=== PATIENT | female | born 1930 | race Two or more races ===

== ENCOUNTER 2018-07-13 14:24 | Inpatient (IN) | payer MEDICARE, OTHER ==
[~2018-07-13] VITALS: Ht 152.4 cm; Wt 59.0 kg
[2018-07-13] MEDS ORDERED: ESCI10TA PO (14:35)
[2018-07-13] MEDS ORDERED: VALS160T29 PO (14:35)
[2018-07-13] MEDS ORDERED: DONE5TAB7 PO (14:35)
[2018-07-13] MEDS ORDERED: MEMA10TA PO (14:35)
[2018-07-13] MEDS ORDERED: AMLO10TA6 PO (14:35)
[2018-07-13] MEDS ORDERED: ATOR10TA33 PO (14:35)
[2018-07-13 14:59] LABS: BASOPHILS # (AUTO) 0.1 K/uL (0.0-8.0); BASOPHILS % (AUTO) 1.3 % (0.0-2.0); EOSINOPHILS # (AUTO) 0.3 K/uL (0.0-0.7); EOSINOPHILS % (AUTO) 4.7 % (0.0-7.0); HEMOGLOBIN 10.4 g/dL (10.9-14.3); LYMPHOCYTES # (AUTO) 2.3 K/uL (20.0-40.0); LYMPHOCYTES % (AUTO) 35.3 % (20.5-51.5); MEAN CORPUSCULAR HEMOGLOBIN 29.8 uug (24.7-32.8); MEAN CORPUSCULAR HGB CONC 34 g/dL (32.3-35.6); MEAN CORPUSCULAR VOLUME 88.8 fL (75.5-95.3); MONOCYTES # (AUTO) 0.7 K/uL (2.0-10.0); MONOCYTES % (AUTO) 9.9 % (0.0-11.0); NEUTROPHILS # (AUTO) 3.2 K/uL (1.8-8.9); NEUTROPHILS % (AUTO) 48.8 % (38.5-71.5); PLATELET COUNT (AUTO) 213 K/uL (179-408); RED BLOOD CELL COUNT(AUTO) 3.49 MIL/uL (3.63-4.92); WHITE BLOOD COUNT (AUTO) 6.7 K/uL (3.8-11.8)
[2018-07-13 15:05] LABS: CARBON DIOXIDE 25 mmol/L (21-32); CHLORIDE 108 mmol/L (98-107); CREATININE 1.5 mg/dL (0.6-1.3); GLUCOSE 98 mg/dL (74-106); POTASSIUM 3.7 mmol/L (3.5-5.1); UREA NITROGEN, BLOOD 38 mg/dL (7-18)
[2018-07-13 15:11] LABS: ALANINE AMINOTRANSFERASE 21 U/L (14-59); ALKALINE PHOSPHATASE 105 U/L (50-136); ASPARTATE AMINOTRANSFERASE 14 U/L (15-37); BILIRUBIN,DIRECT 0.1 mg/dL (0.0-0.2); BILIRUBIN,TOTAL 0.3 mg/dL (0.2-1.0); TOTAL PROTEIN, SERUM 6.6 g/dL (6.4-8.2)
[2018-07-13 15:12] LABS: ACETAMINOPHEN < 2.0 ug/mL (10-30)
[2018-07-13 15:13] LABS: ETHANOL < 3 MG/DL (0-0)
--- NOTE | 2018-07-13 15:30 | NUR ---
Per pt is medically clear and may be transfered to MHU. SBAR report given to Julius HERNDON.
[2018-07-13 15:46] LABS: *BILIRUBIN,URIN NEGATIVE (NEGATIVE); *BLOOD, URINE NEGATIVE (NEGATIVE); *CLARITY,URINE CLEAR (CLEAR); *COLOR,URINE YELLOW (YELLOW); *KETONES,URINE NEGATIVE (NEGATIVE); *PROTEIN,URINE NEGATIVE (NEGATIVE); *UROBILINOGEN,URINE 0.2 E.U./dl (NORMAL); LEUKOCYTE ESTERASE ,URINE NEGATIVE (NEGATIVE); NITRITE, URINE NEGATIVE (NEGATIVE); UGLUCOSE NEGATIVE (NEGATIVE)
[2018-07-13 15:53] LABS: MUCUS,URINE FEW /LPF (0-FEW); SQUAMOUS EPITHELIAL CELL,UR FEW /HPF (NONE SEEN); WBC,URINE 0-3 /HPF (0-3)
--- NOTE | 2018-07-13 15:54 | NUR ---
Pt trans to MHU, NAD noted.
[2018-07-13 16:00] LABS: *AMPHETAMINE, URINE NEGATIVE (NEGATIVE); *BARBITURATE, URINE NEGATIVE (NEGATIVE); *CANNABINOID, URINE NEGATIVE (NEGATIVE); *COCCAINE, URINE NEGATIVE (NEGATIVE); *OPIATE, URINE NEGATIVE (NEGATIVE); *PHENCYCLIDINE SCREEN,URINE NEGATIVE (NEGATIVE)
[2018-07-13] MEDS ORDERED: LORAZEPAM 0.5 MG TABLET PO PRN (16:15)
[2018-07-13] MEDS ORDERED: ACETAMINOPHEN 325 MG TABLET PO PRN (16:15)
[2018-07-13] MEDS ORDERED: MAGNESIUM HYDROXIDE 30 ML LIQUID UDC PO PRN (16:15)
[2018-07-13] MEDS ORDERED: MAG HYDROX/AL HYDROX/SIMETH 30 ML LIQUID UDC PO PRN (16:15)
[2018-07-13] MEDS ORDERED: TEMAZEPAM 7.5 MG CAPSULE PO PRN (16:15)
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
[2018-07-13] MEDS ORDERED: LORAZEPAM 1 MG TABLET PO PRN (16:45)
[2018-07-13] MEDS ORDERED: CLONIDINE HCL 0.1 MG TABLET PO PRN (17:45)
[2018-07-13 20:02] VITALS: BP 147/48
[2018-07-13] MEDS: ATORVASTATIN 10 MG TABLET PO SCH (20:21)
--- NOTE | 2018-07-14 05:38 | NUR ---
GPS: REMAIN CALM AND COOPERATIVE WITH MEDICATIONS AND CARE. AMBULATORY SELF CARE. NO BEHAVIOR ISSUE NOTED. CONTINUE MONITORING FOR SAFETY AND UNSTEADY GAIT.CONTINUE PLAN OF CARE.
--- NOTE | 2018-07-14 05:55 | NUR ---
GPS: SLEPT 10:30 HRS THROUGH THE NIGHT.
[2018-07-14 07:05] LABS: BASOPHILS # (AUTO) 0.1 K/uL (0.0-8.0); BASOPHILS % (AUTO) 1.1 % (0.0-2.0); EOSINOPHILS # (AUTO) 0.4 K/uL (0.0-0.7); EOSINOPHILS % (AUTO) 6.7 % (0.0-7.0); HEMATOCRIT 31.6 % (31.2-41.9); HEMOGLOBIN 10.5 g/dL (10.9-14.3); LYMPHOCYTES # (AUTO) 2.2 K/uL (20.0-40.0); LYMPHOCYTES % (AUTO) 35.4 % (20.5-51.5); MEAN CORPUSCULAR HEMOGLOBIN 29.6 uug (24.7-32.8); MEAN CORPUSCULAR HGB CONC 33 g/dL (32.3-35.6); MONOCYTES # (AUTO) 0.6 K/uL (2.0-10.0); MONOCYTES % (AUTO) 9.6 % (0.0-11.0); NEUTROPHILS # (AUTO) 2.9 K/uL (1.8-8.9); NEUTROPHILS % (AUTO) 47.2 % (38.5-71.5); PLATELET COUNT (AUTO) 208 K/uL (179-408); RED BLOOD CELL COUNT(AUTO) 3.55 MIL/uL (3.63-4.92); WHITE BLOOD COUNT (AUTO) 6.1 K/uL (3.8-11.8)
[2018-07-14 07:49] LABS: ALANINE AMINOTRANSFERASE 20 U/L (14-59); ALKALINE PHOSPHATASE 94 U/L (50-136); ASPARTATE AMINOTRANSFERASE 19 U/L (15-37); BILIRUBIN,TOTAL 0.6 mg/dL (0.2-1.0); CARBON DIOXIDE 25 mmol/L (21-32); CHLORIDE 105 mmol/L (98-107); CREATININE 1.3 mg/dL (0.6-1.3); GLUCOSE 85 mg/dL (74-106); MAGNESIUM 2.1 mg/dL (1.8-2.4); PHOSPHOROUS 3.8 mg/dL (2.5-4.9); POTASSIUM 3.8 mmol/L (3.5-5.1); TOTAL PROTEIN, SERUM 6.2 g/dL (6.4-8.2); UREA NITROGEN, BLOOD 30 mg/dL (7-18)
[2018-07-14 07:51] VITALS: BP 160/44
[2018-07-14] MEDS: AMLODIPINE 10 MG TABLET PO SCH (08:25)
[2018-07-14] MEDS: ASPIRIN EC 81 MG TABLET.DR PO SCH (08:26)
[2018-07-14 10:01] LABS: IRON, SERUM 65 ug/dL (50-175)
[2018-07-14 15:36] VITALS: BP 138/45
--- NOTE | 2018-07-14 15:40 | NUR ---
PT DAUGHTER OPAL CALLED TO RECEIVE INFORMATION ABOUT HER MOTHER. I SPOKE TO THE PT AND SHE VERBALIZES THAT SHE DOES NOT WANT ANY INFORMATION DIVULGED TO ANY OF HER DAUGHTERS OR ANYONE. OPAL STATES THAT SHE IS THE DPOA. NO DPOA DOCUMENTATION WAS PROVIDED. I ATTEMPTED TO CALL [facility] TO OBTAIN A COPY OF THE DPOA DOCUMENT. UNABLE TO OBTAIN DPOA DOCUMENTATION AT THIS TIME. NO INFORMATION PROVIDED TO OPAL.
[2018-07-14] MEDS ORDERED: GUAIFENESIN/DEXTROMETHORPHAN 5 ML UDC PO PRN (17:00)
[2018-07-14] MEDS: ATORVASTATIN 10 MG TABLET PO SCH (20:09)
[2018-07-14] MEDS: QUETIAPINE FUMARATE 25 MG TABLET PO SCH (20:09)
[2018-07-14 20:10] VITALS: BP 150/49
[2018-07-15 07:30] VITALS: BP 159/54
[2018-07-15] MEDS: ASPIRIN EC 81 MG TABLET.DR PO SCH (08:09)
[2018-07-15] MEDS: QUETIAPINE FUMARATE 25 MG TABLET PO SCH ×2 (08:09→20:16)
[2018-07-15] MEDS: DONEPEZIL 5 MG TABLET PO SCH (08:09)
[2018-07-15] MEDS: AMLODIPINE 10 MG TABLET PO SCH (08:10)
[2018-07-15] MEDS: MEMANTINE HCL 10 MG TABLET PO SCH (08:11)
[2018-07-15] MEDS: ESCITALOPRAM OXALATE 10 MG TABLET PO SCH (09:00)
[2018-07-15 15:59] VITALS: BP 128/49
[2018-07-15 20:00] VITALS: BP 148/52
[2018-07-15] MEDS: ATORVASTATIN 10 MG TABLET PO SCH (20:16)
--- NOTE | 2018-07-16 06:05 | NUR ---
GPS: REMAIN CALM AND COOPERATIVE WITH MEDICATIONS AND CARE. SLEPT 6:30 HRS THROUGH THE NIGHT. RESTING IN BED COMFORTABLY. NO ACUTE DISTRESS NOTED.
[2018-07-16 07:30] VITALS: BP 158/69
[2018-07-16] MEDS: ASPIRIN EC 81 MG TABLET.DR PO SCH (09:09)
[2018-07-16] MEDS: MEMANTINE HCL 10 MG TABLET PO SCH (09:10)
[2018-07-16] MEDS: AMLODIPINE 10 MG TABLET PO SCH (09:10)
[2018-07-16] MEDS: ESCITALOPRAM OXALATE 10 MG TABLET PO SCH (09:10)
[2018-07-16] MEDS: DONEPEZIL 5 MG TABLET PO SCH (09:10)
[2018-07-16] MEDS: QUETIAPINE FUMARATE 25 MG TABLET PO SCH ×3 (09:10→20:05)
--- NOTE | 2018-07-16 14:29 | NUR ---
Initial Discharge Instructions: Patient currently resides with her daughter, Elsi [[address], [address] [place] [address]; [phone]]. Per pt, she does not want to return home with her, but instead would like a "quiet house for me to live in without people around." SW left message for return call with her daughter/DPOA, Elsi rCoft ([phone]). BRANDIE will continue to collaborate with pt, family, and MD regarding most appropriate discharge plans for this patient. SW will form a safe and proper discharge.
--- NOTE | 2018-07-16 14:30 | NUR ---
DPOA Note: Received fax from patient's daughter, Elsi Croft ([phone]) with DPOA paperwork. Paperwork placed in patient's chart. Pt's daughter to be involved in care.
[2018-07-16 16:51] VITALS: BP 125/50
[2018-07-16] MEDS: ATORVASTATIN 10 MG TABLET PO SCH (20:05)
[2018-07-16 20:44] VITALS: BP 132/77
--- NOTE | 2018-07-17 05:59 | NUR ---
GPS: REMAIN CALM AND COOPERATIVE WITH MEDICATIONS AND CARE. AMBULATORY SELF CARE. SLEPT 7.5 HRS THROUGH THE NIGHT. CONTINUE MONITORING FOR SAFETY AND UNSTEADY GAIT.CONTINUE PLAN OF CARE.
[2018-07-17 07:30] VITALS: BP 155/58
[2018-07-17] MEDS: QUETIAPINE FUMARATE 25 MG TABLET PO SCH ×3 (09:21→20:26)
[2018-07-17] MEDS: AMLODIPINE 10 MG TABLET PO SCH (09:22)
[2018-07-17] MEDS: ESCITALOPRAM OXALATE 10 MG TABLET PO SCH (09:22)
[2018-07-17] MEDS: ASPIRIN EC 81 MG TABLET.DR PO SCH (09:22)
[2018-07-17] MEDS: MEMANTINE HCL 10 MG TABLET PO SCH (09:22)
[2018-07-17] MEDS: DONEPEZIL 5 MG TABLET PO SCH (09:22)
--- NOTE | 2018-07-17 14:25 | NUR ---
Discharge Planning: concrete worker called and spoke with patient's daughter and DPOA, Elsi [[phone]], about patient's discharge plan. Per Elsi, she would like patient to return home. However, Elsi states that she will need support. Patient has had home health in the past with [facility] . Per Elsi, she has tried to have the company come back again but patient has sent them away. Elsi would like to use the same HH company. Elsi is also requesting that Dr. Somers write a letter for the conservator process she has started that states the patient is lacking competency. concrete worker will follow-up with Dr. Somers on this matter. Lastly, Elsi was offered and is accepting resources for caregivers. concrete worker will refer patient to caregiving agencies.
[2018-07-17 16:05] VITALS: BP 133/61
--- NOTE | 2018-07-17 16:11 | NUR ---
Firearms Report: Private Advisor completed and submitted [employer] Firearms Report for 5250 GD certification.
[2018-07-17 19:57] VITALS: BP 127/49
[2018-07-17] MEDS: ATORVASTATIN 10 MG TABLET PO SCH (20:25)
--- NOTE | 2018-07-18 06:19 | NUR ---
GPS: REMAIN CALM AND COOPERATIVE WITH MEDICATIONS AND CARE. SLEPT 11HRS THROUGH THE NIGHT. RESTING IN BED COMFORTABLY. NO ACUTE DISTRESS NOTED.
[2018-07-18 07:30] VITALS: BP 124/61
[2018-07-18 08:47] VITALS: BP 124/61
[2018-07-18] MEDS: ESCITALOPRAM OXALATE 10 MG TABLET PO SCH (08:47)
[2018-07-18] MEDS: AMLODIPINE 10 MG TABLET PO SCH (08:47)
[2018-07-18] MEDS: DONEPEZIL 5 MG TABLET PO SCH (08:47)
[2018-07-18] MEDS: ASPIRIN EC 81 MG TABLET.DR PO SCH (08:47)
[2018-07-18] MEDS: MEMANTINE HCL 10 MG TABLET PO SCH (08:48)
[2018-07-18] MEDS: QUETIAPINE FUMARATE 25 MG TABLET PO SCH (08:53)
--- NOTE | 2018-07-18 11:41 | NUR ---
CALLED IN PSYCH RX (SEROQUEL, LEXAPRO, NAMENDA, ARICE[facility]) [facility] [address] [facility] ([phone]) SPOKE WITH SALINA, PHARMACIST.
--- NOTE | 2018-07-18 11:48 | NUR ---
Discharge Plan: Patient had her probable cause hearing today and was released by the court. Patient will be discharged back to live with her daughter & DPOA, Elsi [[phone]] [[address] [place] [address]] and transportation will be provided by taxi, which the daughter has agreed to pay for. Please arrange taxi transportation for this patient at 1:00pm. Patients daughter is aware and agreeable with discharge plan. Patient is alert and oriented x3 and denies any SI/HI. Patient will follow-up with her primary care physician, Dr. Wilver Torres [ ]. side door worker has faxed [[phone]] patient continuation of care packet to patients PCP office. Patient currently does not have a psychiatrist so social work faculty member has provided patient and patient DPOA with a list of Medicare accepting psychiatrist. side door worker has encouraged family to schedule follow-up appointments for patient. side door worker has also called patients previous home health provider, [facility] [[phone]], and spoke with Christina, who has agreed to again provide home health services for patient including medication management, social work consult, and nursing evaluation. Patient was given outpatient mental health resources [facility] Crisis Line , Em Alfaro , and the National Suicide Prevention Lifeline . Addendum: 07/18/18 at 1239 by EMIGDIO DIEGO Correction: PCP correct fax is Addendum: 07/18/18 at 1341 by EMIGDIO DIEGO Additional information: Patient daughter, Elsi, has arranged transportation via taxi for patient with [employer].
--- NOTE | 2018-07-18 12:21 | NUR ---
RE MEDICAL RX: DR MALLOY STATES THAT HE JUST DISCHARGED PT FROM [facility] ON THE SAME MEDICATIONS AND PROVIDED HER WITH A PRESCRIPTION AT THAT TIME, SO PT HAS MEDS AT HOME ALREADY AND DOES NOT NEED NEW RX.
--- NOTE | 2018-07-18 13:58 | NUR ---
Discharge Planning (LATE ENTRY for 07/17/18): gas pit worker provided patient daughter & DPOA, Elsi [[phone]], with two [employer] for caregiving services. gas pit worker reached out to Thais [[phone]], with [facility], who has agreed to reach out to family for caregiving services. gas pit worker has also reached out to Edmund [[phone]] with [employer], who has agreed to reach out to family for caregiving services.
--- NOTE | 2018-07-18 14:00 | NUR ---
1335 Discharged instructions given to the patient regarding medicatios to continue at home both psychiatric and medicine , patient verbalized understanding. Prescriptions called in to patient pharmacy.[phone] Patient discharged home via taxi, patient escorted by charge nurse and social service assistant to the lobby where auto parts delivery driver is waiting. Patient discharged home, alert and ox3, denies SI/HI. no delusion . No hallucination noted.
--- NOTE | 2018-07-18 14:00 | NUR ---
PT WAS DISCHARGED BY THE COURT DURING THE 14DPCH HEARING. PT WAS DISCHARGED BACK HOME VIA TAXI THAT WAS ARRANGED BY DAUGHTER. PT WAS ESCORTED TO THE TAXI BY NURSE AND BRANDIE BEAL, WHO CONFIRMED THE BREW HOUSE SUPERVISOR HAD THE CORRECT DROP OFF ADDRESS. PT WAS CALM AND AND COMPLIANT. DENIES SUICIDAL AND HOMICIDAL IDEATION, NO AGGRESSION. PT WAS DISCHARGED WITH ALL BELONGINGS.
== END 2018-07-18 13:45 | disposition home or self-care (01) | DRG 885 ==
LOC: ER 14:24 → GPS 15:36
PROVIDERS: ADMIT Psychiatry & Neurology Psychiatry; ATTEND Internal Medicine
DX: F23 Brief psychotic disorder (principal); N17.0 Acute kidney failure with tubular necrosis; F32.3 Major depressive disorder, single episode, severe with psychotic features; F03.91 Unspecified dementia, unspecified severity, with behavioral disturbance; E87.1 Hypo-osmolality and hyponatremia; E44.0 Moderate protein-calorie malnutrition; G93.40 Encephalopathy, unspecified; J98.11 Atelectasis; Z91.14 Patient's other noncompliance with medication regimen; I11.9 Hypertensive heart disease without heart failure; E78.5 Hyperlipidemia, unspecified; D64.9 Anemia, unspecified; Z68.25 Body mass index [BMI] 25.0-25.9, adult; E86.0 Dehydration; E83.51 Hypocalcemia; Z63.8 Other specified problems related to primary support group; Z79.899 Other long term (current) drug therapy
CPT/HCPCS: 36415; 70030-TC; 71045; 80307; 82652; 83550; 83735; 84100; 84443; 85025; 85730; 93005; 93307; A4663; G0480; G0480-TC

== ENCOUNTER 2019-06-03 15:01 | Inpatient (IN) | payer MEDICARE, MEDICAID ==
[~2019-06-03] VITALS: Ht 157.5 cm; Wt 57.2 kg
[~2019-06-03 15:01] MED LIST: AMLO10TA7 PO; ATOR10TA33 PO; VALS160T29 PO
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
--- NOTE | 2019-06-03 15:29 | NUR ---
CALLED HUMBERTO CHAVEZ, CRISIS WELDING MACHINE OPERATOR HELPER GAS, FOR PSYCH EVAL.
[2019-06-03] MEDS ORDERED: NITROFURANTOIN/NITROFURAN MAC 100 MG CAPSULE PO ONE (15:30)
[2019-06-03] MEDS ORDERED: NITROFURANTOIN/NITROFURAN MAC 100 MG CAPSULE ONE (15:41)
--- NOTE | 2019-06-03 16:35 | NUR ---
HUMBERTO CHAVEZ, CRISIS PRINTED CIRCUIT BOARDS LAMINATOR, AT BEDSIDE FOR PSYCH EVAL.
--- NOTE | 2019-06-03 16:45 | NUR ---
CALLED U TO GIVE ADMITTING REPORT. ADMITTING RN, ANDRIA, STATED "I CANNOT TAKE REPORT" AND HUNG UP.
--- NOTE | 2019-06-03 16:53 | NUR ---
NURSING MANUFACTURING ACCOUNTANT, CARON Mcclain, NOTIFIED.
[2019-06-03] MEDS ORDERED: QUET25TA PO ×2 (17:04)
[2019-06-03] MEDS ORDERED: MEMA10TA PO (17:04)
[2019-06-03] MEDS ORDERED: DONE10TA11 PO (17:04)
[2019-06-03] MEDS ORDERED: ACET325T53 PO (17:04)
[2019-06-03] MEDS ORDERED: LOSA50TA3 PO (17:04)
[2019-06-03] MEDS ORDERED: FLUT9.9S NS (17:04)
[2019-06-03] MEDS ORDERED: ESCI10TA PO (17:04)
--- NOTE | 2019-06-03 17:47 | NUR ---
PT PROVIDED W/ MEAL TRAY.
--- NOTE | 2019-06-03 19:06 | NUR ---
SHIFT REPORT GIVEN TO ROSA MARIA Mack RN.
--- NOTE | 2019-06-03 19:49 | NUR ---
REPORT GIVEN TO KATRINA HARRELL.
--- NOTE | 2019-06-03 19:59 | NUR ---
patient transferred to MHu via gurney with Karan Israel LVN.
[2019-06-03] MEDS ORDERED: MAGNESIUM HYDROXIDE 30 ML LIQUID UDC PO PRN (20:00)
[2019-06-03] MEDS ORDERED: MAG HYDROX/AL HYDROX/SIMETH 30 ML LIQUID UDC PO PRN (20:00)
[2019-06-03] MEDS ORDERED: ACETAMINOPHEN 325 MG TABLET PO PRN (20:00)
[2019-06-03] MEDS ORDERED: CLONAZEPAM 0.5 MG TABLET PO PRN (20:00)
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
[2019-06-03 20:31] VITALS: BP 183/70
--- NOTE | 2019-06-04 01:50 | NUR ---
UA results from sending facility show (+)UTI. Dr Trent notified, Bactrim DS ordered bid, new UA ordered.
--- NOTE | 2019-06-04 05:57 | NUR ---
Patient slept 7 hours last night , and is still asleep. Up to the bathroom a couple of times. No distress noted.
--- NOTE | 2019-06-04 06:32 | NUR ---
Attempted pt's daughter Elsi per Pt request. No answer, left voicemail.
--- NOTE | 2019-06-04 06:56 | NUR ---
Dr Godwin paged regarding medication reconciliation through [facility]. Awaiting response. Will endorse to oncoming bait digger
[2019-06-04 07:30] VITALS: BP 160/63
[2019-06-04 07:54] LABS: ALANINE AMINOTRANSFERASE 12 U/L (14-59); ALKALINE PHOSPHATASE 81 U/L (50-136); ASPARTATE AMINOTRANSFERASE 23 U/L (15-37); BILIRUBIN,TOTAL 0.5 mg/dL (0.2-1.0); CARBON DIOXIDE 28 mmol/L (21-32); CHLORIDE 106 mmol/L (98-107); CHOLESTEROL 139 mg/dL (<200); CREATININE 1.4 mg/dL (0.6-1.3); GLUCOSE 91 mg/dL (74-106); HDL CHOLESTEROL 48 mg/dL (40-60); POTASSIUM 4.4 mmol/L (3.5-5.1); TOTAL PROTEIN, SERUM 6.6 g/dL (6.4-8.2); TRIGLYCERIDES 81 MG/DL (30-150); UREA NITROGEN, BLOOD 23 mg/dL (7-18)
[2019-06-04] MEDS: QUETIAPINE FUMARATE 25 MG TABLET PO SCH ×3 (08:44→17:23)
[2019-06-04] MEDS: SULFAMETH/TRIMETH 800/160 MG TABLET PO SCH ×2 (08:44→17:23)
[2019-06-04 16:00] VITALS: BP 136/63
[2019-06-04] MEDS: LOSARTAN POTASSIUM 50 MG TABLET PO SCH (17:23)
[2019-06-04 19:54] VITALS: BP 108/54
[2019-06-04] MEDS: ATORVASTATIN 10 MG TABLET PO SCH (20:58)
--- NOTE | 2019-06-05 05:42 | NUR ---
Patient slept 11 hours and is still asleep. Got up once during the night to void than back to bed. No distress noted. Continuing to monitor for safety.
[2019-06-05 07:14] LABS: BASOPHILS # (AUTO) 0.1 K/uL (0.0-8.0); BASOPHILS % (AUTO) 1.3 % (0.0-2.0); EOSINOPHILS # (AUTO) 0.3 K/uL (0.0-0.7); EOSINOPHILS % (AUTO) 5.5 % (0.0-7.0); HEMOGLOBIN 11.2 g/dL (10.9-14.3); LYMPHOCYTES # (AUTO) 1.8 K/uL (20.0-40.0); LYMPHOCYTES % (AUTO) 30.3 % (20.5-51.5); MEAN CORPUSCULAR HEMOGLOBIN 28.8 uug (24.7-32.8); MEAN CORPUSCULAR HGB CONC 33 g/dL (32.3-35.6); MEAN CORPUSCULAR VOLUME 87.3 fL (75.5-95.3); MONOCYTES # (AUTO) 0.7 K/uL (2.0-10.0); MONOCYTES % (AUTO) 11.7 % (0.0-11.0); NEUTROPHILS # (AUTO) 3.1 K/uL (1.8-8.9); NEUTROPHILS % (AUTO) 51.2 % (38.5-71.5); PLATELET COUNT (AUTO) 233 K/uL (179-408); RED BLOOD CELL COUNT(AUTO) 3.89 MIL/uL (3.63-4.92)
[2019-06-05 07:19] LABS: MAGNESIUM 1.9 mg/dL (1.8-2.4); PHOSPHOROUS 3.3 mg/dL (2.5-4.9)
[2019-06-05 07:30] VITALS: BP 130/63
[2019-06-05 07:30] LABS: THYROID STIMULATING HORMONE 2.393 mIU/mL (0.358-3.740)
[2019-06-05] MEDS: LOSARTAN POTASSIUM 50 MG TABLET PO SCH ×2 (08:32→16:44)
[2019-06-05] MEDS: AMLODIPINE 10 MG TABLET PO SCH (08:32)
[2019-06-05] MEDS: QUETIAPINE FUMARATE 25 MG TABLET PO SCH ×3 (08:32→16:38)
[2019-06-05] MEDS: SULFAMETH/TRIMETH 800/160 MG TABLET PO SCH ×2 (08:32→16:38)
[2019-06-05] MEDS ORDERED: VALSARTAN 160 MG TABLET PO SCH (09:00)
[2019-06-05 16:00] VITALS: BP 139/52
--- NOTE | 2019-06-05 20:00 | NUR ---
Patient received into care, sleeping in bed, resting comfortably. Patient has no s/s of discomfort or acute distress at this time. All safety and fall precaution measures are in place. Will continue to monitor.
[2019-06-05 20:47] VITALS: BP 126/58
[2019-06-05] MEDS: ATORVASTATIN 10 MG TABLET PO SCH (20:48)
--- NOTE | 2019-06-06 05:52 | NUR ---
Patient slept throughout night, resting comfortably in bed. No s/s of acute distress or discomfort were noted or observed by nurse. All prescribed medications provided as ordered and tolerated well, with no adverse side effects verbalized or observed. All safety and fall precaution measures remain in place.
[2019-06-06 07:30] VITALS: BP 143/56
[2019-06-06] MEDS: SULFAMETH/TRIMETH 800/160 MG TABLET PO SCH ×2 (08:39→18:06)
[2019-06-06] MEDS: AMLODIPINE 10 MG TABLET PO SCH (08:40)
[2019-06-06] MEDS: QUETIAPINE FUMARATE 25 MG TABLET PO SCH ×3 (08:40→18:06)
[2019-06-06] MEDS: LOSARTAN POTASSIUM 50 MG TABLET PO SCH ×2 (08:41→18:15)
--- NOTE | 2019-06-06 14:19 | NUR ---
Initial Discharge plan Patient currently resides with her daughter, Elsi [[address], [address] [place] [address]; [phone]]. Per pt, she does not want to return home with her, but instead would like to live in her own apartment alone. settlement worker spoke with patient's daughter, Elsi Croft ([phone]) and she will be taking patient back home to continue living with her. SW will continue to collaborate with pt, family, and MD regarding most appropriate discharge plans for this patient. SW will form a safe and proper discharge.
[2019-06-06 17:07] VITALS: BP 127/49
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
[2019-06-06] MEDS: ATORVASTATIN 10 MG TABLET PO SCH (20:46)
[2019-06-06 20:58] VITALS: BP 154/60
[2019-06-07 07:30] VITALS: BP 132/59
[2019-06-07] MEDS: SULFAMETH/TRIMETH 800/160 MG TABLET PO SCH ×2 (08:28→16:23)
[2019-06-07] MEDS: LOSARTAN POTASSIUM 50 MG TABLET PO SCH ×2 (08:38→16:23)
[2019-06-07] MEDS: QUETIAPINE FUMARATE 25 MG TABLET PO SCH ×3 (08:39→16:24)
[2019-06-07] MEDS: AMLODIPINE 10 MG TABLET PO SCH (08:39)
[2019-06-07 16:00] VITALS: BP 151/54
--- NOTE | 2019-06-07 17:24 | NUR ---
PATIENT COMPLIANT WITH MEDICATION , DENIES PAIN , EASILY IRRITABLE
--- NOTE | 2019-06-07 20:00 | NUR ---
RECEIVED PATIENT IN HER ROOM IN BED. SHE IS NOTED AWAKE A/O X 2. SHE IS ABLE TO AMBULATE WITH SLOW BUT STEADY GAIT, ABLE TO MAKE HER NEEDS KNOWN AND ABLE TO VERBALIZED FEELINGS. SHE IS NOTED EASILY IRRITABLE, SUSPICIOUS. SHE SAYS, "IT IS A MISTAKE A AM HERE". LABILE BX. CONTINUE WITHDRAWN. SHE WAS ALSO NOTED HARD OF HEARING. V/S STABLE AT THIS TIME. PT WAS REASSURED FOR HER SAFETY. SAFETY AND FALL PRECAUTION IN PLACE. WILL CONTINUE TO MONITOR.
[2019-06-07] MEDS: ATORVASTATIN 10 MG TABLET PO SCH (20:36)
[2019-06-07 20:39] VITALS: BP 124/58
--- NOTE | 2019-06-08 06:47 | NUR ---
PATIENT SLEPT FOR APPROX. 3.30 HRS THROUGH THE NIGHT. PT WAS OFFERED MEDICATION FOR INSOMNIA; HOWEVER, SHE REFUSED. PT CONTINUE COMPLIANT WITH MEDICATION REGIMENT. PATIENT CONTINUE IRRITABLE. SHE WAS NOTED UPSET WITH ROOM MATE, PT WAS REDIRECTED. WILL CONTINUE TO MONITOR.
[2019-06-08 07:30] VITALS: BP 116/56
[2019-06-08 08:04] LABS: CARBON DIOXIDE 22 mmol/L (21-32); CHLORIDE 107 mmol/L (98-107); CREATININE 1.9 mg/dL (0.6-1.3); GLUCOSE 84 mg/dL (74-106); POTASSIUM 4.3 mmol/L (3.5-5.1); UREA NITROGEN, BLOOD 39 mg/dL (7-18)
[2019-06-08] MEDS: SULFAMETH/TRIMETH 800/160 MG TABLET PO SCH ×2 (09:23→17:07)
[2019-06-08] MEDS: AMLODIPINE 10 MG TABLET PO SCH (09:23)
[2019-06-08] MEDS: LOSARTAN POTASSIUM 50 MG TABLET PO SCH (09:24)
[2019-06-08] MEDS: QUETIAPINE FUMARATE 25 MG TABLET PO SCH ×3 (09:24→17:07)
[2019-06-08 16:00] VITALS: BP 111/43
[2019-06-08] MEDS: hydrALAZINE HCL 25 MG TABLET PO SCH (17:19)
--- NOTE | 2019-06-08 18:30 | NUR ---
SLEEPING WELL THRU THE DAY. NO APPARENT DISTRESS NOTED.
--- NOTE | 2019-06-08 20:00 | NUR ---
RECEIVED PATIENT LYING IN BED. ASLEEP BUT EASILY AROUSE TO VERBAL STIMULI. AOX2. DENIES ANY PAIN OR SOB. DENIES SI/HI. CALM AND COOPERATIVE WITH CARE. VS WNL. CONTINUE TO MONITOR.
[2019-06-08] MEDS: ATORVASTATIN 10 MG TABLET PO SCH (20:14)
[2019-06-08 20:46] VITALS: BP 114/58
--- NOTE | 2019-06-09 05:43 | NUR ---
Patient slept 7 1/2 hours last night. Still asleep at this time. No anxiety or agitation noted.
[2019-06-09 07:30] VITALS: BP 132/75
--- NOTE | 2019-06-09 07:30 | NUR ---
RECIEVED PT SOUND ASLEEP IN BED. UNEVENTFUL NIGHT AND PT IS AROUSABLE.
[2019-06-09] MEDS: AMLODIPINE 10 MG TABLET PO SCH (08:32)
[2019-06-09] MEDS: SULFAMETH/TRIMETH 800/160 MG TABLET PO SCH ×2 (08:32→17:13)
[2019-06-09] MEDS: QUETIAPINE FUMARATE 25 MG TABLET PO SCH ×3 (08:32→17:13)
[2019-06-09] MEDS: hydrALAZINE HCL 25 MG TABLET PO SCH ×2 (08:34→17:14)
--- NOTE | 2019-06-09 14:54 | NUR ---
FIREARMS REPORT: Mission Assessment Specialist completed and submitted a [employer] firearms report for 5250 grave disability certification. A copy of report has been placed in patient chart.
[2019-06-09 15:29] VITALS: BP 128/69
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
[2019-06-09 20:00] VITALS: BP 142/60
[2019-06-09] MEDS: ATORVASTATIN 10 MG TABLET PO SCH (20:40)
[2019-06-10 06:44] LABS: BASOPHILS # (AUTO) 0.1 K/uL (0.0-8.0); BASOPHILS % (AUTO) 0.8 % (0.0-2.0); EOSINOPHILS # (AUTO) 0.1 K/uL (0.0-0.7); EOSINOPHILS % (AUTO) 1.6 % (0.0-7.0); HEMATOCRIT 36.2 % (31.2-41.9); HEMOGLOBIN 11.7 g/dL (10.9-14.3); LYMPHOCYTES # (AUTO) 2.3 K/uL (20.0-40.0); LYMPHOCYTES % (AUTO) 32.3 % (20.5-51.5); MEAN CORPUSCULAR HGB CONC 32 g/dL (32.3-35.6); MEAN CORPUSCULAR VOLUME 86.4 fL (75.5-95.3); MONOCYTES # (AUTO) 0.6 K/uL (2.0-10.0); MONOCYTES % (AUTO) 8.8 % (0.0-11.0); NEUTROPHILS % (AUTO) 56.5 % (38.5-71.5); PLATELET COUNT (AUTO) 258 K/uL (179-408); RED BLOOD CELL COUNT(AUTO) 4.18 MIL/uL (3.63-4.92); WHITE BLOOD COUNT (AUTO) 7.1 K/uL (3.8-11.8)
[2019-06-10 06:56] LABS: CARBON DIOXIDE 23 mmol/L (21-32); CHLORIDE 109 mmol/L (98-107); CREATININE 1.9 mg/dL (0.6-1.3); GLUCOSE 100 mg/dL (74-106); PHOSPHOROUS 3.6 mg/dL (2.5-4.9); POTASSIUM 4.2 mmol/L (3.5-5.1); UREA NITROGEN, BLOOD 46 mg/dL (7-18)
--- NOTE | 2019-06-10 06:58 | NUR ---
Shift End Report: VS stable. Calm and cooperative. Slept well. No fall/injury. No significant event reported. Continue care as planned.
[2019-06-10 07:30] VITALS: BP 130/51
[2019-06-10] MEDS: SULFAMETH/TRIMETH 800/160 MG TABLET PO SCH (08:17)
[2019-06-10] MEDS: AMLODIPINE 10 MG TABLET PO SCH (08:18)
[2019-06-10] MEDS: hydrALAZINE HCL 25 MG TABLET PO SCH ×2 (08:19→16:13)
[2019-06-10] MEDS: QUETIAPINE FUMARATE 25 MG TABLET PO SCH ×2 (08:25→16:12)
[2019-06-10 15:54] VITALS: BP 135/48
--- NOTE | 2019-06-10 17:17 | NUR ---
PATIENT AOX1, ISOLATIVE WITHDRAWN, REFUSED HER SHOWER, EVEN AFTER EXPLAINING THE BENEFIT OF HYGIENE, PATIENT STILL INSIST OF NOT TAKING SHOWER, WILL CONTINUE MONITOR
--- NOTE | 2019-06-10 20:00 | NUR ---
RECEIVED PATIENT LYING IN BED. AOX1-2. CALM AND QUITE. APPEARS WITHDRAWN. DENIES ANY PAIN OR SOB. DENIES SI/HI. CONTINUE TO MONITOR.
[2019-06-10] MEDS: ATORVASTATIN 10 MG TABLET PO SCH (20:24)
--- NOTE | 2019-06-11 05:03 | NUR ---
[place] patient screamin and yelling, when asked what was happening, patient was anxious and angry about her roommate talking and stated she cannot get some sleep. Was becoming verbally abusive to both nurses and room mate. Unable to calm patient down, offered some food and medication for anxiety but patient refuses and continue to talk loudly and verbally abusive.
--- NOTE | 2019-06-11 06:06 | NUR ---
Patient slept 9.0 hours last night.
[2019-06-11 07:30] VITALS: BP 149/43
[2019-06-11 07:34] LABS: BASOPHILS # (AUTO) 0.1 K/uL (0.0-8.0); BASOPHILS % (AUTO) 1.6 % (0.0-2.0); EOSINOPHILS # (AUTO) 0.2 K/uL (0.0-0.7); EOSINOPHILS % (AUTO) 4.8 % (0.0-7.0); HEMATOCRIT 33.2 % (31.2-41.9); HEMOGLOBIN 11.2 g/dL (10.9-14.3); LYMPHOCYTES # (AUTO) 1.8 K/uL (20.0-40.0); MEAN CORPUSCULAR HEMOGLOBIN 29.4 uug (24.7-32.8); MEAN CORPUSCULAR HGB CONC 34 g/dL (32.3-35.6); MEAN CORPUSCULAR VOLUME 87.6 fL (75.5-95.3); MONOCYTES # (AUTO) 0.5 K/uL (2.0-10.0); MONOCYTES % (AUTO) 10.2 % (0.0-11.0); NEUTROPHILS # (AUTO) 2.4 K/uL (1.8-8.9); NEUTROPHILS % (AUTO) 47.4 % (38.5-71.5); PLATELET COUNT (AUTO) 246 K/uL (179-408); RED BLOOD CELL COUNT(AUTO) 3.79 MIL/uL (3.63-4.92); WHITE BLOOD COUNT (AUTO) 5.1 K/uL (3.8-11.8)
[2019-06-11 07:46] LABS: ALANINE AMINOTRANSFERASE 15 U/L (14-59); ALKALINE PHOSPHATASE 72 U/L (50-136); ASPARTATE AMINOTRANSFERASE 16 U/L (15-37); BILIRUBIN,TOTAL 0.6 mg/dL (0.2-1.0); CARBON DIOXIDE 24 mmol/L (21-32); CHLORIDE 110 mmol/L (98-107); CREATININE 1.7 mg/dL (0.6-1.3); GLUCOSE 92 mg/dL (74-106); MAGNESIUM 2.1 mg/dL (1.8-2.4); PHOSPHOROUS 3.2 mg/dL (2.5-4.9); POTASSIUM 4.2 mmol/L (3.5-5.1); TOTAL PROTEIN, SERUM 6.8 g/dL (6.4-8.2); UREA NITROGEN, BLOOD 37 mg/dL (7-18)
[2019-06-11] MEDS: QUETIAPINE FUMARATE 25 MG TABLET PO SCH ×2 (08:13→16:11)
[2019-06-11] MEDS: AMLODIPINE 10 MG TABLET PO SCH (08:14)
[2019-06-11] MEDS: hydrALAZINE HCL 25 MG TABLET PO SCH ×2 (08:14→16:11)
[2019-06-11 16:00] VITALS: BP 120/52
--- NOTE | 2019-06-11 20:00 | NUR ---
Received patient in bed. A/Ox1. Patient is withdrawn and agitated. Denies any pain, SI/Hallucinations. Will continue to monitor.
[2019-06-11] MEDS: ATORVASTATIN 10 MG TABLET PO SCH (20:52)
--- NOTE | 2019-06-12 07:30 | NUR ---
RECIEVED PT LYING IN BED SOUND ASLEEP BUT AROUSABLE NO APPARENT DISTRESS NOTED.
[2019-06-12 07:48] VITALS: BP 154/55
[2019-06-12] MEDS: hydrALAZINE HCL 25 MG TABLET PO SCH (08:14)
[2019-06-12] MEDS: QUETIAPINE FUMARATE 25 MG TABLET PO SCH (08:14)
[2019-06-12 08:15] VITALS: BP 154/55
[2019-06-12] MEDS: AMLODIPINE 10 MG TABLET PO SCH (08:15)
--- NOTE | 2019-06-12 10:04 | NUR ---
Discharge note Patient will be discharged today back home [[address], [address] [place] [address]; [phone]]. Patient is alert and oriented x3-4, is aware and agreeable with discharge plans, and denies suicidal or homicidal ideation. Patient�s daughter, Elsi Jean [[phone]] is aware and agreeable with discharge plans. [employer] transportation has been scheduled by the daughter for the patient to be picked up between 2:30pm-3pm today. Patient will continue to follow-up with her current Primary Care Physician, Dr. Wilver Torres [Address: [address] [place] [address] [address], [place] [address]; ] and has a follow up appointment scheduled for Sunday, June 16, 2019 at 10AM. Pharmacy Associate has faxed a continuation of care packet to patient�s primary care physician�s office [fax # [phone]]. Patient does not currently have an outpatient psychiatrist. template layout worker has provided patient and MELISSAElsi with a list of Medicare accepting psychiatrist near area. template layout worker has encouraged family to schedule follow-up appointments for patient. template layout worker has also scheduled a home health provider, [facility] [[phone]] and spoke with Christina, who has agreed to provide home health services for patient including medication management, social work consult, and nursing evaluation. Patient was given outpatient mental health resources [facility] Crisis Line , and the National Suicide Prevention Lifeline .
--- NOTE | 2019-06-12 10:30 | NUR ---
DISCHARGE ORDER RECIEVED. PT AND FAMILY MADE AWARE.
--- NOTE | 2019-06-12 13:30 | NUR ---
DISCHARGE INSTRUCTIONS GIVEN TO THE PT WITH GOOD UNDERSTANDING.
--- NOTE | 2019-06-12 15:00 | NUR ---
PT IS BEING PICKED UP BY A PRIVATE TRANSPORT. PT IS DISCHARGED VIA W/C. CONDITION IS STABLE.
== END 2019-06-12 15:00 | disposition home health service (06) | DRG 885 ==
LOC: ER 15:01 → GPS 19:50
PROVIDERS: ADMIT Psychiatry & Neurology Psychiatry; ATTEND Nurse Practitioner Acute Care
DX: F29 Unspecified psychosis not due to a substance or known physiological condition (principal); N18.9 Chronic kidney disease, unspecified; N39.0 Urinary tract infection, site not specified; E44.1 Mild protein-calorie malnutrition; G30.9 Alzheimer's disease, unspecified; F02.80 Dementia in other diseases classified elsewhere, unspecified severity, without behavioral disturbance, psychotic disturbance, mood disturbance, and anxiety; I12.9 Hypertensive chronic kidney disease with stage 1 through stage 4 chronic kidney disease, or unspecified chronic kidney disease; E78.5 Hyperlipidemia, unspecified; D63.8 Anemia in other chronic diseases classified elsewhere; Z91.19 Patient's noncompliance with other medical treatment and regimen; Z79.899 Other long term (current) drug therapy; N28.9 Disorder of kidney and ureter, unspecified
CPT/HCPCS: 36415; 83735; 84100; 84443; 85025; A4663

== ENCOUNTER 2019-06-16 19:46 | Inpatient (IN) | payer MEDICARE, MEDICAID ==
[~2019-06-16] VITALS: Ht 157.5 cm; Wt 55.8 kg
[~2019-06-16 19:46] MED LIST changes: +FLUT9.9S NS; +LOSA50TA3 PO
[2019-06-16 20:14] LABS: BASOPHILS % (AUTO) 0.6 % (0.0-2.0); EOSINOPHILS # (AUTO) 0.2 K/uL (0.0-0.7); EOSINOPHILS % (AUTO) 3.9 % (0.0-7.0); HEMATOCRIT 29.4 % (31.2-41.9); HEMOGLOBIN 9.6 g/dL (10.9-14.3); LYMPHOCYTES # (AUTO) 1.6 K/uL (20.0-40.0); LYMPHOCYTES % (AUTO) 26.5 % (20.5-51.5); MEAN CORPUSCULAR HEMOGLOBIN 28.6 uug (24.7-32.8); MEAN CORPUSCULAR HGB CONC 33 g/dL (32.3-35.6); MEAN CORPUSCULAR VOLUME 87.1 fL (75.5-95.3); MONOCYTES # (AUTO) 0.6 K/uL (2.0-10.0); MONOCYTES % (AUTO) 9.7 % (0.0-11.0); NEUTROPHILS # (AUTO) 3.5 K/uL (1.8-8.9); NEUTROPHILS % (AUTO) 59.3 % (38.5-71.5); PLATELET COUNT (AUTO) 201 K/uL (179-408); RED BLOOD CELL COUNT(AUTO) 3.37 MIL/uL (3.63-4.92); WHITE BLOOD COUNT (AUTO) 5.9 K/uL (3.8-11.8)
[2019-06-16 20:22] LABS: CARBON DIOXIDE 23 mmol/L (21-32); CHLORIDE 108 mmol/L (98-107); CREATININE 1.9 mg/dL (0.6-1.3); GLUCOSE 123 mg/dL (74-106); POTASSIUM 3.8 mmol/L (3.5-5.1); UREA NITROGEN, BLOOD 54 mg/dL (7-18)
[2019-06-16 20:27] LABS: ALANINE AMINOTRANSFERASE 13 U/L (14-59); ALKALINE PHOSPHATASE 77 U/L (50-136); ASPARTATE AMINOTRANSFERASE 20 U/L (15-37); BILIRUBIN,DIRECT 0.1 mg/dL (0.0-0.2); BILIRUBIN,TOTAL 0.4 mg/dL (0.2-1.0); TOTAL PROTEIN, SERUM 6.5 g/dL (6.4-8.2)
[2019-06-16 20:28] LABS: ACETAMINOPHEN < 2.0 ug/mL (10-30)
[2019-06-16] MEDS ORDERED: QUET50TA PO (20:29)
[2019-06-16] MEDS ORDERED: ESCI10TA PO (20:33)
[2019-06-16] MEDS ORDERED: MEMA5TAB PO (20:33)
[2019-06-16 20:35] LABS: ETHANOL < 3 MG/DL (0-0); THYROID STIMULATING HORMONE 1.813 mIU/mL (0.358-3.740)
[2019-06-16] MEDS ORDERED: IV NORMAL SALINE 1000 ML BAG IV ONE (21:45)
[2019-06-16] MEDS ORDERED: TEMAZEPAM 7.5 MG CAPSULE PO PRN (23:30)
[2019-06-16] MEDS ORDERED: CLONAZEPAM 0.5 MG TABLET PO SCH (23:30)
[2019-06-16] MEDS ORDERED: ACETAMINOPHEN 325 MG TABLET PO PRN (23:30)
[2019-06-16] MEDS ORDERED: MAG HYDROX/AL HYDROX/SIMETH 30 ML LIQUID UDC PO PRN (23:30)
[2019-06-16] MEDS ORDERED: MAGNESIUM HYDROXIDE 30 ML LIQUID UDC PO PRN (23:30)
[2019-06-16 23:45] VITALS: BP 116/40
[2019-06-17] MEDS ORDERED: CLONAZEPAM 0.5 MG TABLET PO PRN ×2 (07:11)
[2019-06-17 08:09] VITALS: BP 134/49
[2019-06-17] MEDS: ESCITALOPRAM OXALATE 10 MG TABLET PO SCH (09:39)
[2019-06-17] MEDS: QUETIAPINE FUMARATE 25 MG TABLET PO SCH ×2 (09:40→21:13)
[2019-06-17 15:20] VITALS: BP 154/62
[2019-06-17 20:18] VITALS: BP 103/55
[2019-06-18 08:00] VITALS: BP 155/50
[2019-06-18] MEDS: QUETIAPINE FUMARATE 25 MG TABLET PO SCH ×2 (09:44→20:51)
[2019-06-18] MEDS: ESCITALOPRAM OXALATE 10 MG TABLET PO SCH (09:44)
[2019-06-18 16:24] VITALS: BP 147/55
[2019-06-18 21:36] VITALS: BP 128/59
[2019-06-19 07:54] LABS: BASOPHILS # (AUTO) 0.1 K/uL (0.0-8.0); BASOPHILS % (AUTO) 1.7 % (0.0-2.0); EOSINOPHILS # (AUTO) 0.2 K/uL (0.0-0.7); EOSINOPHILS % (AUTO) 4.5 % (0.0-7.0); HEMATOCRIT 31.3 % (31.2-41.9); HEMOGLOBIN 10.2 g/dL (10.9-14.3); LYMPHOCYTES # (AUTO) 1.7 K/uL (20.0-40.0); LYMPHOCYTES % (AUTO) 31.3 % (20.5-51.5); MEAN CORPUSCULAR HEMOGLOBIN 28.3 uug (24.7-32.8); MEAN CORPUSCULAR HGB CONC 33 g/dL (32.3-35.6); MEAN CORPUSCULAR VOLUME 86.6 fL (75.5-95.3); MONOCYTES # (AUTO) 0.6 K/uL (2.0-10.0); MONOCYTES % (AUTO) 11.6 % (0.0-11.0); NEUTROPHILS # (AUTO) 2.7 K/uL (1.8-8.9); NEUTROPHILS % (AUTO) 50.9 % (38.5-71.5); PLATELET COUNT (AUTO) 217 K/uL (179-408); RED BLOOD CELL COUNT(AUTO) 3.61 MIL/uL (3.63-4.92); WHITE BLOOD COUNT (AUTO) 5.4 K/uL (3.8-11.8)
[2019-06-19 08:08] LABS: IRON, SERUM 34 ug/dL (50-175)
[2019-06-19 08:10] LABS: CREATINE KINASE, TOTAL 53 U/L (26-192)
[2019-06-19 08:31] LABS: ALANINE AMINOTRANSFERASE 10 U/L (14-59); ALKALINE PHOSPHATASE 75 U/L (50-136); ASPARTATE AMINOTRANSFERASE 16 U/L (15-37); BILIRUBIN,TOTAL 0.5 mg/dL (0.2-1.0); CARBON DIOXIDE 23 mmol/L (21-32); CHLORIDE 109 mmol/L (98-107); CREATININE 1.3 mg/dL (0.6-1.3); FERRITIN 58 ng/mL (8-252); GLUCOSE 88 mg/dL (74-106); MAGNESIUM 1.6 mg/dL (1.8-2.4); PHOSPHOROUS 2.8 mg/dL (2.5-4.9); POTASSIUM 4.1 mmol/L (3.5-5.1); TOTAL PROTEIN, SERUM 6.3 g/dL (6.4-8.2); UREA NITROGEN, BLOOD 26 mg/dL (7-18)
[2019-06-19] MEDS: AMLODIPINE 10 MG TABLET PO SCH (09:32)
[2019-06-19] MEDS: ESCITALOPRAM OXALATE 10 MG TABLET PO SCH (09:32)
[2019-06-19] MEDS: QUETIAPINE FUMARATE 25 MG TABLET PO SCH ×2 (09:33→21:22)
[2019-06-19 10:07] VITALS: BP 157/64
[2019-06-19] MEDS ORDERED: MAGNESIUM OXIDE 400 MG TABLET PO ONE (13:45)
[2019-06-19 16:21] VITALS: BP 119/50
[2019-06-19] MEDS: ATORVASTATIN 10 MG TABLET PO SCH (21:22)
[2019-06-19] MEDS: FERROUS SULFATE 325 MG TABEC PO SCH (21:22)
[2019-06-19 21:30] VITALS: BP 159/66
[2019-06-20 08:48] VITALS: BP 157/58
[2019-06-20] MEDS: ESCITALOPRAM OXALATE 10 MG TABLET PO SCH (09:16)
[2019-06-20] MEDS: FERROUS SULFATE 325 MG TABEC PO SCH ×2 (09:16→20:41)
[2019-06-20] MEDS: QUETIAPINE FUMARATE 25 MG TABLET PO SCH ×2 (09:16→20:41)
[2019-06-20] MEDS: AMLODIPINE 10 MG TABLET PO SCH (09:17)
[2019-06-20 15:04] VITALS: BP 133/63
[2019-06-20 20:23] VITALS: BP 153/66
[2019-06-20] MEDS: ATORVASTATIN 10 MG TABLET PO SCH (20:41)
[2019-06-21 07:30] VITALS: BP 129/48
[2019-06-21] MEDS: FERROUS SULFATE 325 MG TABEC PO SCH ×2 (09:15→21:05)
[2019-06-21] MEDS: QUETIAPINE FUMARATE 25 MG TABLET PO SCH ×2 (09:15→21:05)
[2019-06-21] MEDS: ESCITALOPRAM OXALATE 10 MG TABLET PO SCH (09:15)
[2019-06-21] MEDS: AMLODIPINE 10 MG TABLET PO SCH (09:16)
[2019-06-21 15:32] VITALS: BP 130/53
[2019-06-21 20:24] VITALS: BP 157/73
[2019-06-21] MEDS: ATORVASTATIN 10 MG TABLET PO SCH (21:05)
[2019-06-22 07:30] VITALS: BP 151/73
[2019-06-22] MEDS: AMLODIPINE 10 MG TABLET PO SCH (09:51)
[2019-06-22] MEDS: ESCITALOPRAM OXALATE 10 MG TABLET PO SCH (09:51)
[2019-06-22] MEDS: FERROUS SULFATE 325 MG TABEC PO SCH ×2 (09:51→20:40)
[2019-06-22] MEDS: QUETIAPINE FUMARATE 25 MG TABLET PO SCH ×2 (09:52→20:40)
[2019-06-22 14:15] LABS: *BILIRUBIN,URIN NEGATIVE (NEGATIVE); *BLOOD, URINE NEGATIVE (NEGATIVE); *CLARITY,URINE CLEAR (CLEAR); *COLOR,URINE YELLOW (YELLOW); *KETONES,URINE NEGATIVE (NEGATIVE); *UROBILINOGEN,URINE 0.2 E.U./dl (NORMAL); LEUKOCYTE ESTERASE ,URINE TRACE (NEGATIVE); NITRITE, URINE NEGATIVE (NEGATIVE); UGLUCOSE NEGATIVE (NEGATIVE)
[2019-06-22 14:20] LABS: RBC,URINE 0-3 /HPF (0-3)
[2019-06-22 15:37] VITALS: BP 115/42
[2019-06-22 20:10] VITALS: BP 144/64
[2019-06-22] MEDS: ATORVASTATIN 10 MG TABLET PO SCH (20:40)
[2019-06-23 07:30] VITALS: BP 132/44
[2019-06-23] MEDS: FERROUS SULFATE 325 MG TABEC PO SCH ×2 (08:30→20:19)
[2019-06-23] MEDS: QUETIAPINE FUMARATE 25 MG TABLET PO SCH ×2 (08:30→20:18)
[2019-06-23] MEDS: AMLODIPINE 10 MG TABLET PO SCH (08:30)
[2019-06-23] MEDS: ESCITALOPRAM OXALATE 10 MG TABLET PO SCH (08:31)
[2019-06-23 15:20] VITALS: BP 100/58
[2019-06-23] MEDS: ATORVASTATIN 10 MG TABLET PO SCH (20:18)
[2019-06-24 07:30] VITALS: BP 112/59
[2019-06-24] MEDS: FERROUS SULFATE 325 MG TABEC PO SCH ×2 (09:10→20:49)
[2019-06-24] MEDS: AMLODIPINE 10 MG TABLET PO SCH (09:11)
[2019-06-24] MEDS: QUETIAPINE FUMARATE 25 MG TABLET PO SCH ×2 (09:11→20:49)
[2019-06-24] MEDS: ESCITALOPRAM OXALATE 10 MG TABLET PO SCH (09:11)
[2019-06-24 15:46] VITALS: BP 128/50
[2019-06-24 20:01] VITALS: BP 129/58
[2019-06-24] MEDS: ATORVASTATIN 10 MG TABLET PO SCH (20:48)
[2019-06-25 07:30] VITALS: BP 131/50
[2019-06-25 09:11] VITALS: BP 131/50
[2019-06-25] MEDS: QUETIAPINE FUMARATE 25 MG TABLET PO SCH (09:11)
[2019-06-25] MEDS: AMLODIPINE 10 MG TABLET PO SCH (09:11)
[2019-06-25] MEDS: FERROUS SULFATE 325 MG TABEC PO SCH (09:11)
[2019-06-25] MEDS: ESCITALOPRAM OXALATE 10 MG TABLET PO SCH (09:11)
== END 2019-06-25 13:00 | DRG 885 ==
LOC: ER 19:46 → GPS 23:24
PROVIDERS: ADMIT Psychiatry & Neurology Psychiatry; ATTEND Student in an Organized Health Care Education/Training Program
DX: F33.3 Major depressive disorder, recurrent, severe with psychotic symptoms (principal); N18.9 Chronic kidney disease, unspecified; N17.0 Acute kidney failure with tubular necrosis; F02.81 Dementia in other diseases classified elsewhere, unspecified severity, with behavioral disturbance; E44.0 Moderate protein-calorie malnutrition; I13.0 Hypertensive heart and chronic kidney disease with heart failure and stage 1 through stage 4 chronic kidney disease, or unspecified chronic kidney disease; I50.32 Chronic diastolic (congestive) heart failure; G30.9 Alzheimer's disease, unspecified; D63.1 Anemia in chronic kidney disease; E78.5 Hyperlipidemia, unspecified; Z68.22 Body mass index [BMI] 22.0-22.9, adult; Z87.440 Personal history of urinary (tract) infections; Z79.899 Other long term (current) drug therapy
CPT/HCPCS: 36415; 83550; 83735; 83970; 84100; 84443; 85025; 87086; 93005; A4663; G0480; G0480-TC; J7030